=== PATIENT | male | born 1990 | race African-American/Black ===

== ENCOUNTER 2016-11-08 01:54 | Emergency (ER) | payer MEDICAID, OTHER ==
[~2016-11-08] VITALS: Ht 195.6 cm; Wt 114.0 kg
[2016-11-08 01:59] VITALS: Ht 195.6 cm; Wt 114.0 kg
[2016-11-08] MEDS ORDERED: DIPHENHYDRAMINE 50 MG CAP PO ONE (03:00)
--- NOTE | 2016-11-08 04:18 | RADRPT ---
PROCEDURE: XR Chest. CLINICAL INDICATION: Cough times 3 days, chest pain TECHNIQUE: Single frontal view of the chest was obtained COMPARISON: None FINDINGS: The heart and mediastinum are within normal limits. Patchy increased density in the left lower lung could be secondary to pneumonitis. There is no pleural effusion or pneumothorax. IMPRESSION: Patchy increased density in the left lower lung could be secondary to pneumonitis. RPTAT: HJES .Noe Plasencia MD, MD Date Time Electronically viewed and signed by .Noe Plasencia MD, on 11/08/2016 04:17 .S/
--- NOTE | 2016-11-08 04:33 | ERD ---
ER Documentation Chief Complaint Date/Time DATE: 11/08/16 TIME: 04:24 Chief Complaint CP when cough x 3 days, reports flu like syptoms. Denies SOB HPI 26-year-old male presents to emergency department for complete of cough for 3 days, patient has been having dry cough, does not cooperative phlegm or blood. Patient denies any shortness breath or wheezing. Patient has been having chest pain when coughing started today. Sharp pain, 6/10 scale, is worse upon taking a deep breath. Patient is also worried since there is a lump behind his neck area, it has been painful, they were massaging it, it got more swollen and painful. Patient's complaining of pain on affected area throbbing pain for session scale, is worse upon touching the area. Patient denies any fever or chills. ROS All systems reviewed and are negative except as per history of present illness. Medications Home Meds Active Scripts Guaifenesin-Codeine Phosphate* (Guaifenesin* AC Cough Syrup) 473 Ml Liquid, 10 ML PO Q4H Y for COUGH, #120 ML Prov:GRECIA GUERRA NP 11/08/16 Ibuprofen* (Motrin*) 600 Mg Tab, 600 MG PO Q6H Y for PAIN AND OR ELEVATED TEMP, #30 TAB Prov:GRECIA GUERRA NP 11/08/16 Azithromycin* (Zithromax*) 250 Mg Tablet, 250 MG PO .ZPACK DIRECTED, #6 TAB TAKE 500 MG (2 TABS) THE FIRST DAY THEN 250 MG (1 TAB) DAYS 2-5 Prov:GRECIA GUERRA NP 11/08/16 Reported Medications [None] Unknown Strength No Conflict Check 11/08/16 Allergies Allergies: Coded Allergies: No Known Allergy (Unverified , 11/08/16) PMhx/Soc History of Surgery: No Anesthesia Reaction: No Hx Neurological Disorder: No Hx Respiratory Disorders: No Hx Cardiac Disorders: No Hx Psychiatric Problems: No Hx Miscellaneous Medical Probl: No Hx Alcohol Use: Yes (social) Hx Substance Use: No Hx Tobacco Use: No Smoking Status: Never smoker FmHx Family History: No coronary disease, No diabetes, No other Physical Exam Vitals Vital Signs Date Time Temp Pulse Resp B/P Pulse Ox O2 Delivery O2 Flow Rate FiO2 8/7/17 01:59 98.6 80 18 156/90 98 Physical Exam GENERAL: The patient is well developed and appropriate for usual state of health, in no apparent distress. CHEST: Clear to auscultation bilaterally. There are no rales, wheezes or rhonchi. HEART: Regular rate and rhythm. No murmurs, clicks, rubs or gallops. No S3 or S4. ABDOMEN: Soft, nontender and nondistended. Good bowel sounds. No rebound or guarding. No gross peritonitis. No gross organomegaly or masses. No Escobar sign or McBurney point tenderness. BACK: No midline or flank tenderness. EXTREMITIES: Equal pulses bilaterally. There is no peripheral clubbing, cyanosis or edema. No focal swelling or erythema. Full range of motion. Grossly neurovascularly intact. NEURO: Alert and oriented. Cranial nerves 2-12 intact. Motor strength in all 4 extremities with 5/5 strength. Sensation grossly intact. Normal speech and gait. SKIN: Noted 3 x 4 cm lump noted in the upper back area, mild tenderness on palpation, no erythema, no fluctuance, no induration noted. There is no apparent rash or petechia. The skin is warm and dry. HEMATOLOGIC AND LYMPHATIC: There is no evidence of excessive bruising or lymphedema. No gross cervical, axillary, or inguinal lymphadenopathy. Results 24 hrs Current Medications Medications (Trade) Dose Ordered Sig/Abhilash Route PRN Reason Start Time Stop Time Status Last Admin Dose Admin Diphenhydramine HCl (Benadryl) 50 mg ONCE ONCE PO 11/08/16 03:00 11/08/16 03:01 DC 11/08/16 02:51 Benadryl was given here in emergency department for the itching on his back. EKG was done, read by me and is normal sinus rhythm at a rate of 69, normal axis , there is no ST changes or changes in the EKG that indicates any cardiac emergencies at this time. Patient's EKG was also reviewed by Dr. Calero. Impression: no acute findings on EKG PROCEDURE: XR Chest. CLINICAL INDICATION: Cough times 3 days, chest pain TECHNIQUE: Single frontal view of the chest was obtained COMPARISON: None FINDINGS: The heart and mediastinum are within normal limits. Patchy increased density in the left lower lung could be secondary to pneumonitis. There is no pleural effusion or pneumothorax. IMPRESSION: Patchy increased density in the left lower lung could be secondary to pneumonitis. RPTAT: HJES .Noe Plasencia MD, MD Date Time Electronically viewed and signed by .Noe Plasencia MD, on 11/08/2016 04:17 .S/ CC: GRECIA GUERRA [employer] Procedures/MDM Medical Decision Making: Patient symptoms are most likely consistent with pneumonitis, possible atypical infection. There is low suspicion for Pneumonia at this time since patients lungs sounds are clear, patient O2 saturation is normal and patient doesnt show any respiratory distress. Patients chest xray doesnt show infiltrates or any other cardiopulmonary emergencies at this time. There is low suspicion for other cardiopulmonary emergencies at this time such as CHF, Pulmonary Embolism, Pneumothorax, Aortic Aneurysm or any other cardiopulmonary emergencies at this time. There is low suspicion for sepsis. Patient appears well and is hemodynamically stable. Patient does not have any fever. Patient's lump in the back consistent with lipoma, no infection noted, no fluctuance noted. No symptoms of any abscess. . Disposition: Home. Condition: Stable Prescriptions: Guaifenesin with codeine, ibuprofen, azithromycin Instructions: Patient is advised to take medications as prescribed. Patient is advised to rest. Patient advised to increase fluid intake, do humidifier at home and if possible, do salt water gargles. Patient is advised that if symptoms are worse, shortness of breath, uncontrolled fever, stridor, vomiting, worst signs and symptoms to return to emergency department immediately. Otherwise, patient is advised to follow up with primary doctor in 5-7 days. Departure Diagnosis: Primary Impression: Pneumonitis Condition: Stable Patient Instructions: Pneumonia (Adult) Additional Instructions: Patient is advised to take medications as prescribed. Patient is advised to rest. Patient advised to increase fluid intake, do humidifier at home and if possible, do salt water gargles. Patient is advised that if symptoms are worse, shortness of breath, uncontrolled fever, stridor, vomiting, worst signs and symptoms to return to emergency department immediately. Otherwise, patient is advised to follow up with primary doctor in 5-7 days. GRECIA GUERRA NP Nov 08, 2016 04:33
[2016-11-08] MEDS ORDERED: IBUP-1542 PO ×2 (04:36→04:58)
[2016-11-08] MEDS ORDERED: GUAI473L22 PO ×2 (04:36→04:58)
[2016-11-08] MEDS ORDERED: AZIT250T94 PO ×2 (04:36→04:58)
[2016-11-08 05:00] VITALS: BP 158/90; PULSE 64; RESP 18; TEMP 98.2
== END 2016-11-08 05:00 | disposition home or self-care (01) ==
LOC: FTE 01:54
DX: J18.9 Pneumonia, unspecified organism (principal)
CPT/HCPCS: 71010; 93005